=== PATIENT | female | born 1940 | race Two or more races ===

== ENCOUNTER 2018-02-17 09:37 | Emergency (ER) | payer OTHER ==
[~2018-02-17] VITALS: Ht 152.4 cm; Wt 66.7 kg
[2018-02-17] MEDS ORDERED: SYNTHROID100 MCG PO (10:19)
[2018-02-17] MEDS ORDERED: ZOLOFT100 MG PO (10:19)
[2018-02-17] MEDS ORDERED: OXYCODONE HCL5 MG PO (10:21)
[2018-02-17] MEDS ORDERED: CELEBREX200MG PO (10:22)
[2018-02-17] MEDS ORDERED: PANTOPRAZOLE SO40 MG PO (10:22)
[2018-02-17] MEDS ORDERED: CRESTOR10 MG PO (10:24)
[2018-02-17] MEDS ORDERED: DIAZEPAM2 MG PO (10:24)
[2018-02-17] MEDS ORDERED: NEURONTIN600 MG PO (10:25)
[2018-02-17] MEDS ORDERED: LOVAZA1 GM PO (10:26)
[2018-02-17] MEDS ORDERED: FLONASE ALLERG9.9 ML NASAL (14:39)
[2018-02-17] MEDS ORDERED: CEPHALEXIN500 MG PO (14:39)
== END 2018-02-17 17:51 | disposition home or self-care (01) ==
LOC: ER 09:37
DX: R55 Syncope and collapse (principal); E86.0 Dehydration; N39.0 Urinary tract infection, site not specified; J32.8 Other chronic sinusitis

== ENCOUNTER 2018-02-24 13:03 | Outpatient (CLI) | payer OTHER ==
[~2018-02-24 13:03] MED LIST: CELEBREX200MG PO; CEPHALEXIN500 MG PO; CRESTOR10 MG PO; DIAZEPAM2 MG PO; FLONASE ALLERG9.9 ML NASAL; LOVAZA1 GM PO; NEURONTIN600 MG PO; OXYCODONE HCL5 MG PO; PANTOPRAZOLE SO40 MG PO; SYNTHROID100 MCG PO; ZOLOFT100 MG PO
== END 2018-02-24 13:12 | disposition home or self-care (01) ==
LOC: RAD 13:03
DX: R05 Cough (principal)

== ENCOUNTER 2018-07-19 08:52 | Outpatient (CLI) | payer OTHER | END 2018-07-19 08:57 | disposition home or self-care (01) | LOC: RAD 501 08:52 | DX: M25.552 Pain in left hip (principal); M25.572 Pain in left ankle and joints of left foot ==

== ENCOUNTER 2018-08-01 08:05 | Outpatient (CLI) | payer OTHER | END 2018-08-01 08:21 | disposition home or self-care (01) | LOC: RAD 08:05 | DX: M54.5 Low back pain (principal) ==

== ENCOUNTER 2018-08-04 13:04 | Outpatient (CLI) | payer OTHER | END 2018-08-04 15:09 | disposition home or self-care (01) | LOC: MRI 13:04 | DX: M54.17 Radiculopathy, lumbosacral region (principal); M41.25 Other idiopathic scoliosis, thoracolumbar region | CPT/HCPCS: 72148 ==

== ENCOUNTER 2018-08-25 12:29 | Outpatient (CLI) | payer OTHER | END 2018-08-25 12:33 | disposition home or self-care (01) | LOC: NUCLEAR 12:29 | DX: M81.0 Age-related osteoporosis without current pathological fracture (principal) ==

== ENCOUNTER 2019-03-16 12:48 | Outpatient (CLI) | payer OTHER | END 2019-03-16 13:02 | disposition home or self-care (01) | LOC: SONOGRAMA 12:48 | DX: M65.88 Other synovitis and tenosynovitis, other site (principal) ==

== ENCOUNTER 2019-08-10 13:03 | Outpatient (CLI) | payer OTHER | END 2019-08-10 13:09 | disposition home or self-care (01) | LOC: LAB 13:03 | PROVIDERS: ATTEND Radiology Diagnostic Radiology | DX: N20.0 Calculus of kidney (principal) ==

== ENCOUNTER 2019-08-11 09:48 | Outpatient (CLI) | payer OTHER | END 2019-08-11 09:55 | disposition home or self-care (01) | LOC: RAD 09:48 → MRI 09:48 → RAD 09:55 → MRI 10:00 | PROVIDERS: ATTEND Orthopaedic Surgery | DX: M25.561 Pain in right knee (principal); M25.562 Pain in left knee; M25.572 Pain in left ankle and joints of left foot | CPT/HCPCS: 73565; 73723; A9575; 73722 ==

== ENCOUNTER → 2020-03-06 | Outpatient (CLI) | payer OTHER | END | disposition home or self-care (01) | LOC: TOM 12:01 | PROVIDERS: ATTEND Ophthalmology | DX: D31.61 Benign neoplasm of unspecified site of right orbit (principal) ==

== ENCOUNTER 2020-03-13 09:34 | Outpatient (CLI) | payer OTHER | END 2020-03-13 09:54 | disposition HB | LOC: RAD 09:34 | DX: M17.12 Unilateral primary osteoarthritis, left knee (principal); M25.572 Pain in left ankle and joints of left foot; M25.562 Pain in left knee; M25.552 Pain in left hip ==

== ENCOUNTER → 2020-12-24 | Outpatient (CLI) | payer OTHER | END | disposition home or self-care (01) | LOC: PPH VACUNA 08:00 | PROVIDERS: ATTEND Emergency Medicine Pediatric Emergency Medicine | DX: Z23 Encounter for immunization (principal) ==

== ENCOUNTER 2021-02-03 11:34 | Outpatient (CLI) | payer OTHER | END 2021-02-03 11:42 | disposition home or self-care (01) | LOC: RAD 11:34 | PROVIDERS: ATTEND Orthopaedic Surgery | DX: M17.0 Bilateral primary osteoarthritis of knee (principal); M25.551 Pain in right hip; M25.552 Pain in left hip; M79.671 Pain in right foot; M79.672 Pain in left foot ==

== ENCOUNTER 2021-02-28 09:22 | Outpatient (CLI) | payer OTHER | END 2021-02-28 09:30 | disposition home or self-care (01) | LOC: LAB 09:22 | PROVIDERS: ATTEND Orthopaedic Surgery | DX: E56.1 Deficiency of vitamin K (principal); E55.9 Vitamin D deficiency, unspecified; M85.88 Other specified disorders of bone density and structure, other site; E21.2 Other hyperparathyroidism; E88.89 Other specified metabolic disorders; M81.8 Other osteoporosis without current pathological fracture ==

== ENCOUNTER 2021-04-10 11:30 | Outpatient (CLI) | payer OTHER | END 2021-04-10 11:50 | disposition home or self-care (01) | LOC: RAD 11:30 → SONOGRAMA 11:30 | PROVIDERS: ATTEND Otolaryngology | DX: R22.1 Localized swelling, mass and lump, neck (principal) ==

== ENCOUNTER 2021-05-15 08:00 | Outpatient (CLI) | payer OTHER | END 2021-05-15 08:30 | disposition home or self-care (01) | LOC: PPH VACUNA 08:00 | PROVIDERS: ATTEND Emergency Medicine Pediatric Emergency Medicine | DX: Z23 Encounter for immunization (principal) ==

== ENCOUNTER 2022-01-16 07:48 | Outpatient (CLI) | payer OTHER | END 2022-01-16 07:57 | disposition home or self-care (01) | LOC: SONOGRAMA 07:48 | PROVIDERS: ATTEND Obstetrics & Gynecology | DX: R10.2 Pelvic and perineal pain (principal) ==

== ENCOUNTER 2022-01-22 15:17 | Outpatient (CLI) | payer OTHER | END 2022-01-22 15:25 | disposition home or self-care (01) | LOC: RAD 15:17 | PROVIDERS: ATTEND Orthopaedic Surgery | DX: M25.561 Pain in right knee (principal); M25.562 Pain in left knee; M17.0 Bilateral primary osteoarthritis of knee; M54.50 Low back pain, unspecified ==

== ENCOUNTER 2022-02-05 11:49 | Outpatient (CLI) | payer OTHER | END 2022-02-05 12:00 | disposition home or self-care (01) | LOC: RAD 11:49 | PROVIDERS: ATTEND Orthopaedic Surgery | DX: M79.651 Pain in right thigh (principal); M25.551 Pain in right hip ==

== ENCOUNTER 2022-02-28 07:06 | Outpatient (CLI) | payer OTHER | END 2022-02-28 07:07 | disposition home or self-care (01) | LOC: LAB 07:06 | PROVIDERS: ATTEND Orthopaedic Surgery | DX: D64.9 Anemia, unspecified (principal); M06.4 Inflammatory polyarthropathy; E55.9 Vitamin D deficiency, unspecified; M85.9 Disorder of bone density and structure, unspecified; E56.1 Deficiency of vitamin K ==

== ENCOUNTER 2022-03-20 13:01 | Outpatient (CLI) | payer OTHER ==
[~2022-03-20 13:01] MED LIST changes: +ZOLOFT20 MG/1 ML PO
== END 2022-03-20 13:03 | disposition home or self-care (01) ==
LOC: TOM 13:01
PROVIDERS: ATTEND Orthopaedic Surgery
DX: R51.9 Headache, unspecified (principal); S06.0XAD Concussion with loss of consciousness status unknown, subsequent encounter

== ENCOUNTER 2022-04-03 09:12 | Emergency (ER) | payer OTHER ==
[~2022-04-03] VITALS: Ht 149.9 cm; Wt 67.1 kg
== END 2022-04-03 12:34 | disposition home or self-care (01) ==
LOC: ER 09:12
DX: M51.16 Intervertebral disc disorders with radiculopathy, lumbar region (principal); R10.32 Left lower quadrant pain